=== PATIENT | female | born 2000 | race Caucasian/White ===

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

== ENCOUNTER 2020-07-19 06:12 | Inpatient (IN) ==
[2020-07-19] MEDS ORDERED: ANCEF VIAL 1 GRAM IVP ONE (06:26)
[2020-07-19] MEDS ORDERED: D5 1/2 NS 1000 ML 1,000 ML IV SCH (06:26)
[2020-07-19] MEDS ORDERED: PEPCID 20 MG IV PREMIX* 20 MG/50 ML BAG IV ONE ×2 (06:28→07:03)
[2020-07-19] MEDS ORDERED: LR 1000 ML IV 1,000 ML IV ONE ×3 (06:28→07:41)
[2020-07-19] MEDS ORDERED: ZOFRAN INJ 4 MG VIAL ONE ×2 (06:30→07:17)
[2020-07-19] MEDS ORDERED: ANCEF 1 GRAM IV PREMIX* 1 G/50 ML BAG IV ONE (06:44)
[2020-07-19] MEDS ORDERED: DILAUDID INJ ONE (07:02)
[2020-07-19] MEDS ORDERED: NS 100 ML IV 100 ML IV ONE (07:02)
[2020-07-19] MEDS ORDERED: MARCAINE SPINAL ONE (07:17)
[2020-07-19] MEDS ORDERED: TORADOL 30 MG VIAL ONE (07:17)
[2020-07-19] MEDS ORDERED: PITOCIN ONE (07:17)
[2020-07-19] MEDS ORDERED: EPHEDRINE SULFATE INJ ONE (07:17)
[2020-07-19] MEDS ORDERED: REGLAN INJ 10 MG VIAL ONE (07:17)
[2020-07-19] MEDS ORDERED: XYLOCAINE 2 % (PLAIN) ONE (07:17)
[2020-07-19] MEDS ORDERED: NEO-SYNEPHRINE INJ ONE (07:17)
[2020-07-19] MEDS ORDERED: DECADRON INJ ONE (07:17)
[2020-07-19] MEDS ORDERED: D5 1/2 NS 1L W PITOCIN 20 UNITS/L 20 UNITS/1,000 ML BAG IV ONE (08:15)
[2020-07-19] MEDS ORDERED: BENADRYL INJ 50 MG VIAL ONE (09:09)
[2020-07-19] MEDS ORDERED: ZOFRAN INJ 4 MG VIAL IVP PRN ×2 (09:11→09:30)
[2020-07-19] MEDS ORDERED: PHENERGAN INJ 25 MG IM PRN (09:11)
[2020-07-19] MEDS ORDERED: BENADRYL INJ 50 MG VIAL IVP PRN ×2 (09:11→09:30)
[2020-07-19] MEDS ORDERED: TORADOL 30 MG VIAL IVP PRN (09:30)
[2020-07-19] MEDS ORDERED: ADACEL or BOOSTRIX TDaP VACCINE IM ONE (09:30)
[2020-07-19] MEDS ORDERED: REGLAN INJ 10 MG VIAL IVP PRN (09:30)
[2020-07-19] MEDS ORDERED: PERCOCET TAB 5/325 MG PO PRN (09:30)
[2020-07-19] MEDS ORDERED: MYLICON TAB 80 MG CHEW PO PRN (09:30)
[2020-07-19] MEDS ORDERED: NARCAN INJ IVP PRN (09:30)
[2020-07-19] MEDS ORDERED: D5 1/2 NS 1000 ML 1,000 ML with PITOCIN 20 UNITS IV SCH ×2 (10:00)
[2020-07-19] MEDS ORDERED: MOTRIN TAB 800 MG PO ONE (17:40)
[2020-07-19] MEDS: MOTRIN TAB 800 MG PO PRN (17:50)
[2020-07-19] MEDS: PERCOCET TAB 5/325 MG PO PRN (19:43)
[2020-07-19] MEDS: COLACE CAP 100 MG PO SCH (21:45)
[2020-07-20] MEDS: BACTROBAN CREAM TOP SCH ×2 (00:50→06:07)
[2020-07-20 04:34] LABS: HEMATOCRIT 32.6 % (36.0-47.0); HEMOGLOBIN 10.8 g/dL (12.0-16.0)
[2020-07-20] MEDS: PERCOCET TAB 5/325 MG PO PRN ×2 (04:35→10:14)
[2020-07-20 08:04] VITALS: BP 111/64
[2020-07-20] MEDS ORDERED: MOTRIN TAB 800 MG PO ONE (08:13)
[2020-07-20] MEDS: COLACE CAP 100 MG PO SCH (08:20)
[2020-07-20] MEDS: MOTRIN TAB 800 MG PO PRN (08:21)
[2020-07-20] MEDS ORDERED: PRENATAL PLUS PO SCH (09:00)
[2020-07-20] MEDS ORDERED: PROTONIX TAB 40 MG PO SCH (09:00)
[2020-07-20] MEDS ORDERED: BACTROBAN TOPICAL OINT TOP SCH (14:00)
== END 2020-07-20 12:15 | disposition home or self-care (01) | DRG 788 ==
LOC: LD 06:12 → OBS 09:27
PROVIDERS: ADMIT Specialist; ATTEND Specialist
DX: Z3A.39 39 weeks gestation of pregnancy; O99.613 Diseases of the digestive system complicating pregnancy, third trimester; O34.211 Maternal care for low transverse scar from previous cesarean delivery; Z01.812 Encounter for preprocedural laboratory examination; N85.8 Other specified noninflammatory disorders of uterus; O26.893 Other specified pregnancy related conditions, third trimester; K21.9 Gastro-esophageal reflux disease without esophagitis; Z37.0 Single live birth; Z30.2 Encounter for sterilization